=== PATIENT | male | born 2005 | race Caucasian/White ===

== ENCOUNTER 2025-06-10 08:31 | Emergency (ER) | payer OTHER, SELFPAY ==
[2025-06-10 08:36] VITALS: BP 138/79; PULSE 77; RESP 16; TEMP 36.6; O2SAT 97; BMI 23.2
--- NOTE | 2025-06-10 08:44 | ED_ITS ---
HPI - General Adult General Chief complaint: Animal Bite Stated complaint: Rabies vaccine missing last one Time Seen by Provider: 06/10/25 08:43 Source: patient and RN notes reviewed Mode of arrival: ambulatory Limitations: no limitations History of Present Illness ED Provider: Maritza Richardson PA-C HPI narrative: 20-year-old male without medical history presents to the ED for last rabies series immunization. Patient states he had a bad exposure on 05/28/2025 in [place] while house sitting. Patient states he woke up and realized there was a bat in the house, did not know how long that was there. Patient states he had did not notice any broken skin, bites or scratches. Patient has received 2 immunizations on 05/28, 06/04 in [place], is presenting to the ED today for his last immunization. Patient states he is not having any physical symptoms, no side effects from immunization. MD complaint: rabies vaccination Related Data Allergies Allergy/AdvReac Type Severity Reaction Status Date / Time No Known Allergies Allergy Verified 06/10/25 08:37 Review of Systems Review of Systems: CONST: Negative for fever, body aches and chills. HENT: Negative for neck pain/stiffness, headache, congestion, sore throat, swelling. EYES: Negative for discharge/pain or vision changes. RESP: Negative for cough/hemoptysis and shortness of breath. CV: Negative chest pain, difficulty breathing, palpitations. ABD: Negative pain, nausea, vomiting. : Negative increase frequency, dysuria, blood in urine or stool. MUSC: Negative for muscle aches, edema. SKIN: Negative rash, lesions/sores. NEURO: Negative headache, dizziness, weakness. PMFSH Social History Social History Advance Directives: No Advance Directives Information Provided: Yes Do you have a plan to hurt others: No Plan Physical Exam ED Vital Signs: Vital Signs - 24 hr 06/10/25 08:36 Temperature 97.9 F Pulse Rate 77 Respiratory Rate 16 Blood Pressure 138/79 Pulse Oximetry 97 Oxygen Delivery Method Room Air BMI result Body Mass Index 23.2 GENERAL APPEARANCE: ?AxOx4, generally well-appearing, no acute distress. HEENT: ?NC, AT. MMM. EOMI, clear conjunctiva, oropharynx clear. NECK: ?Supple without lymphadenopathy.? No stiffness or restricted ROM. HEART:? Normal rate and regular rhythm, normal S1/S2, no m/r/g LUNGS:? CTAB, moving air well. No crackles or wheezes are heard. NEUROLOGICAL: ?Grossly nonfocal. Alert and oriented, moving all 4 extremities. Observed to ambulate with normal gait. Skin: ?Warm and dry without any rash. Medications Administered Discontinued Medications Generic Name Dose Route Start Last Admin Trade Name Nachoq PRN Reason Stop Dose Admin Rabies Vaccine 1 ml 06/10/25 08:44 06/10/25 08:50 Rabies Vaccine (Pcec)/Pf 1 Ml Vial IM 06/10/25 08:45 1 ml .ONCE ONE Administration Medical Decision Making Medical Decision Making MDM Narrative: 20-year-old male without medical history presents to the ED for last rabies series immunization. Patient states he had a bad exposure on 05/28/2025 in [place] while house sitting. Patient states he woke up and realized there was a bat in the house, did not know how long that was there. Patient states he had did not notice any broken skin, bites or scratches. Patient has received 2 immunizations on 05/28, 06/04 in [place], is presenting to the ED today for his last immunization. Patient states he is not having any physical symptoms, no side effects from immunization. VSS- BP 138/79, pulse rate of 77, respiratory rate of 16, afebrile with oral temperature of 97.9, O2 saturation 97 percent on room air. Patient presenting to ED for encounter for last rabies immunization. Patient has no physical complaints. Does not report adverse reaction from prior rabies vaccinations recieved on 06/04 Differential Diagnosis Differential Diagnoses: The differential diagnosis associated with the presentation includes Encounter for rabies vaccination Admission/Observation Consideration of admission/observation: Escalation of care including admission/observation considered External Record Review External record reviewed: Inpatient record, Office record and Outpatient record Discharge Plan Discharge Clinical Impression: Rabies vaccine administered Patient Disposition: Home, Self-Care Additional Instructions: You were seen in the ED today for your last rabies vaccination in the series received on 06/10/2025 Please return to the emergency department if you experience fevers over 100.4 degrees, chest pain, shortness of breath, weakness, difficulty walking, increased pain in the injection site, drainage from the injection site or any other new/worsening/concerning symptoms. Print Language: Tajik
[2025-06-10] MEDS: Rabies Vaccine (PCEC)/PF 1 ML VIAL IM (08:50)
--- OUTSIDE RECORDS SUMMARY | 2025-06-10 09:00 | XMS_ITS | Encounter Summary ---
Author Organization [facility] Address [address] [place] [address] Care Team Providers Care Investment Strategist Name Role Phone Leo Zee Primary Care Provider Encounter Details Date Type Department Care Team (Late Contact Info) Description 04/28/2023 Lab Requisition [facility] Laboratory - [facility] [address] [place] [address] Isaura Simons, [address] [place] [phone] Localized enlarged lymph nodes Social History Tobacco Use Types Packs/Day Years Used Date Smoking Tobacco: Never Assessed Interpersonal Safety Answer Date Record ed Physically Hurt Never 05/31/2020 Verbally Threaten Not on file 05/31/2020 Sex and Gender Information Value Date Recorded Sex Assigned at Male 05/25/2025 21:51 EDT Legal Sex Male 16:50 EDT Gender Identity Male 02/13/2022 17:08 EDT Sexual Orientation Not on file documented as of this encounter Plan of Treatment Upcoming Encounters Date Type Department Care Team (Late Contact Info) Description 07/31/2025 14:00 EDT Office Visit [facility] Ear, Nose & Throat [address] [place] [address] Garett Horton MD [address] [facility] [address] [place] [phone] documented as of this encounter Procedures Procedure Name Priority Date/Time Associated Diagnosis Comments CHLAMYDIA/N. GONORRHOEAE AMPLIFIED NUCLEIC ACID Today 04/28/2023 9:53 EDT Localized enlarged lymph nodes BACTERIAL CULTURE, URINE Today 04/28/2023 9:53 EDT Localized enlarged lymph nodes documented in this encounter Results * BACTERIAL CULTURE, URINE (04/28/2023 9:53 EDT) Organism ID Less than 10,000 CFU/ml Usual urogenital damian VITEK SUSCEPTIBILITY 04/29/2023 7:[address] [facility] Urine URINE SPECIMEN COLLECTION, CLEAN CATCH / Unknown 04/28/2023 9:53 EDT 04/28/2023 13:50 EDT [address] [facility] - 04/29/2023 7:32 EDT Suggestive Of Contamination us Isaura Simons NP MICROBIOLOGY - GENERAL ORDE RABLES Final Result Performing Organization Address City/[facility]/ZIP Co de Phone Number [facility] [address] [place] [address] * CHLAMYDIA/N. GONORRHOEAE AMPLIFIED RNA (04/28/2023 9:53 EDT) Neisseria gonorrhoeae Result Negative Negative 04/30/2023 17:[address] [facility] Chlamydia trachomatis Result Negative Negative 04/30/2023 17:[address] [facility] Urine 04/28/2023 9:53 EDT 04/28/2023 13:50 EDT us Isaura Simons NP MICROBIOLOGY - GENERAL ORDE RABLES Final Result Performing Organization Address City/[facility]/ZIP Co de Phone Number [facility] [address] [place] [address] documented in this encounter Visit Diagnoses Diagnosis Localized enlarged lymph nodes Enlargement of lymph nodes documented in this encounter Additional Health Concerns Infection Onset Date Last Indicated Resolved Time R/O COVID-06/24/2024 06/24/2024 06/25/2024 1:38 EDT COVID-19 06/24/2024 06/24/2024 07/14/2024 22:1 5 EDT documented as of this encounter Care Teams Investment Strategist Relationship Specialty Start Date End Date Leo Zee DO [address] [place] [phone] PCP - General 02/13/22 documented as of this encounter
--- OUTSIDE RECORDS SUMMARY | 2025-06-10 09:01 | XMS_ITS | Clinical Summary ---
Author Organization [facility] Address [address] [place] [address] Phone Care Team Providers Care Fugitive Detective Name Role Phone Binh Luque MD Primary Care Provider Encounters Date Type Department Care Team Description 05/07/2025 4:00 PM EDT Office Visit [facility] Cardiac Arrhythmia Service [address], [address] [place] [address] Leo Vasquez MD Abnormal electrocardiogram (Primary Dx); Paroxysmal atrial fibrillation 05/07/2025 1:00 PM EDT - 05/07/2025 11:59 PM EDT Hospital Encounter [facility] Holter Lab [address], [address] [place] [address] Leo Vasquez MD Discharge Disposition: Home or Self Care 05/07/2025 Procedure Pass [facility] Holter Lab [address], [address] [place] [address] from Last 3 Months Social History Tobacco Use Types Packs/Day Years Used Date Smoking Tobacco: Unknown Education Answer Date Recorded Are you interested in more education? Not on pako e 03/16/2025 Are you concerned about learning? Not on file 03/16/2025 No 03/16/2025 No 03/16/2025 Digital Access Answer Date Recorded No 03/16/2025 No 03/16/2025 Reliable internet access at home? Not on file 03/16/2025 Device with a working camera? Not on file Sex and Gender Information Value Date Recorded Sex Assigned at Male 03/16/2025 2:07 PM EDT Legal Sex Male 9:58 AM EDT Gender Identity Male 03/16/2025 2:07 PM EDT Sexual Orientation Straight 03/16/2025 2: 07 PM EDT Last Filed Vital Signs Vital Sign Reading Time Taken Comments Blood Pressure 176/97 05/07/2025 3:47 PM EDT Pulse 74 05/07/2025 3:47 PM EDT Temperature - - Respiratory Rate - - Oxygen Saturation - - Inhaled Oxygen Concentration - - Weight 77.6 kg (171 lb) 05/07/2025 3:47 PM EDT Height - - Body Mass Index - - Plan of Treatment Upcoming Encounters Date Type Department Care Team ([facility] st Contact Info) Description 05/07/2025 Procedure Pass MRI, [facility] - [address], [address] [place] [address] 06/12/2025 7:20 AM EDT Appointment MRI, [facility] - [address], [address] [place] [address] Leo Vasquez MD [address] [place] [id number] [email or web address] 08/12/2025 9:30 AM EDT Telemedicine [facility] Cardiac Arrhythmia Service [address], [address] [place] [address] Leo Vasquez MD [address] [place] [id number] [email or web address] Health Maintenance Due Date Last Done Comments Adult Td,Tdap Booster 2004 MMR VACCINES (1 of 1 - Standard series) 01/16/2005 COMBINED DTaP,Tdap,Td (1 - Tdap) 01/16/2011 DEPRESSION SCREENING 2016 SMOKING Hx and SMOKELESS TOBACCO SCREENING 01/16/2017 HPV VACCINES (1 - Male 3-dos e series) 01/16/2019 MENINGOCOCCAL VACCINES (B) ( 1 of 2 - Standard) 2020 ADOLESCENT UNIVERSAL LIPID SCREENING 01/16/2021 HIV ONE-TIME SCREENING (18-6 5 YEARS) 01/16/2022 COVID-19 VACCINE (2023-2 5 season) 2024 HEPATITIS C SCREENING Completed 05/02/2023 , 04/21/2022 HEPATITIS A VACCINES Aged Out No long er eligible based on patient's age to complete this topic HIB VACCINES Aged Out No longer eligi ble based on patient's age to complete this topic MENINGOCOCCAL VACCINES (ACWY) Aged Out No longer eligible based on patient's age to complete this topic PNEUMOCOCCAL VACCINES (0-49 years) Aged Out No longer eligible b ased on patient's age to complete this topic Medical Devices Not on file Procedures Procedure Name Priority Date/Time Associated Diagnosis Comments ECG 12-LEAD Routine 05/07/2025 3:43 PM EDT Abnormal electrocardiogram from Last 3 Months Results * ECG 12-LEAD (05/07/2025 3:43 PM EDT) Systolic Blood Pressure [facility] Diastolic Blood Pressure [facility] Ventricular Rate EKG/MIN 74 BPM [facility] Atrial Rate 74 BPM [facility] OR Interval 138 ms [facility] QRS Duration 92 ms [facility] QT Interval 374 ms [facility] QTC Interval 415 ms [facility] P [place] 31 degrees [facility] R Wave [place] 71 degrees [facility] T Wave [place] 47 degrees [facility] 05/07/2025 3:43 PM EDT 05/07/2025 5:04 PM EDT Narrative [facility] - 05/07/2025 5:04 PM EDT NORMAL SINUS RHYTHM SINUS ARRHYTHMIA EARLY REPOLARIZATION PATTERN NO PREVIOUS ECGS AVAILABLE us Leo Vasquez MD ECG ORDERABLES Final Re sult [facility] from Last 3 Months [place] [address] [place] [address] HEALTHCARE PPO [facility] PPO [facility] PPO [facility] PPO Care Teams Fugitive Detective Relationship Specialty Start Date End Date Binh Luque MD [address] [place] [address] PCP - General Internal Medicine 03/16/25 Additional Source Comments The information contained in this document represents components of the legal health record. It is not the complete legal health record.[facility]
[2025-06-10 09:08] VITALS: BP 138/79; PULSE 77; RESP 16; TEMP 36.6; O2SAT 97
== END 2025-06-10 09:09 | disposition home or self-care (01) ==
PROVIDERS: Emergency Provider Emergency Medicine
DX: Z20.3 Contact with and (suspected) exposure to rabies (principal)
CPT/HCPCS: 90471; 90675; 99282; 99284